=== PATIENT | male | born 1975 | race Caucasian/White ===

== ENCOUNTER 2021-10-16 20:07 | Emergency (ER) | payer OTHER ==
[~2021-10-16] VITALS: Ht 188 cm; Wt 105.1 kg
[2021-10-16] MEDS ORDERED: ACETAMINOPHEN TAB 650MG DOSE (2X325MG) PO ONE (20:30)
[2021-10-16 21:24] LABS: RSV AMPLIFICATION NEGATIVE (NEGATIVE)
[2021-10-17 00:53] VITALS: BP 111/71
== END 2021-10-17 00:54 | disposition home or self-care (01) ==
LOC: M ED 20:07
DX: R50.9 Fever, unspecified (principal)